=== PATIENT | female | born 1935 | race Caucasian/White ===

== ENCOUNTER 2018-08-10 09:40 | Emergency (ER) | payer MEDICARE, OTHER ==
[2018-08-10] MEDS: DIPHTH/TET/ACEL PERTUSS (ADULT) 0.5 ML VIAL IM* (09:58)
[2018-08-10] MEDS: IBUPROFEN 200 MG TAB PO (09:58)
[2018-08-10] MEDS: LIDOCAINE 1% (MDV) 20 ML INJ SC (10:00)
== END 2018-08-10 14:53 | disposition home or self-care (01) ==
LOC: E/R 09:40
DX: S01.81XA Laceration without foreign body of other part of head, initial encounter (principal); I89.0 Lymphedema, not elsewhere classified; S80.11XA Contusion of right lower leg, initial encounter; I10 Essential (primary) hypertension; R40.2142 Coma scale, eyes open, spontaneous, at arrival to emergency department; R40.2252 Coma scale, best verbal response, oriented, at arrival to emergency department; R40.2362 Coma scale, best motor response, obeys commands, at arrival to emergency department; W18.30XA Fall on same level, unspecified, initial encounter; Y92.9 Unspecified place or not applicable; Z79.82 Long term (current) use of aspirin
CPT/HCPCS: 12013; 70450; 71045; 73590; 90471; 90715; 93971; 99284-25